=== PATIENT | male | born 1970 | race Caucasian/White ===

== ENCOUNTER 2016-07-07 22:17 | Emergency (ER) | payer BC ==
[~2016-07-07] VITALS: Ht 182.9 cm; Wt 181.4 kg
[2016-07-07] MEDS ORDERED: FARXIGA5 MG PO (22:26)
== END 2016-07-07 23:15 | disposition short-term general hospital (02) ==
LOC: ER 22:17
DX: J98.01 Acute bronchospasm (principal); J30.9 Allergic rhinitis, unspecified; F17.210 Nicotine dependence, cigarettes, uncomplicated; I10 Essential (primary) hypertension; E11.9 Type 2 diabetes mellitus without complications; I25.10 Atherosclerotic heart disease of native coronary artery without angina pectoris; Z79.84 Long term (current) use of oral hypoglycemic drugs; Z90.49 Acquired absence of other specified parts of digestive tract